=== PATIENT | male | born 1995 | race Hispanic/Latino ===

== ENCOUNTER 2017-05-31 20:55 | Emergency (ER) | payer OTHER ==
[~2017-05-31 20:55] MED LIST: IBUP-2077 PO
[2017-05-31] MEDS ORDERED: IBUPROFEN 200 MG TAB ONE (21:48)
[2017-05-31] MEDS ORDERED: IBUPROFEN 400 MG TABLET ONE (21:48)
== END 2017-05-31 22:09 | disposition home or self-care (01) ==
LOC: EDH 20:55
DX: S62.324A Displaced fracture of shaft of fourth metacarpal bone, right hand, initial encounter for closed fracture (principal); Z98.890 Other specified postprocedural states; W18.39XA Other fall on same level, initial encounter; Y93.89 Activity, other specified; Y92.098 Other place in other non-institutional residence as the place of occurrence of the external cause; Y99.8 Other external cause status
CPT/HCPCS: 29125; 73130